=== PATIENT | female | born 1945 | race Caucasian/White ===

== ENCOUNTER 2017-07-22 23:22 | Emergency (ER) | payer OTHER ==
[2017-07-22 23:38] VITALS: BMI 23.3
[2017-07-22] MEDS ORDERED: NS 1000 ML 1,000 ML ONE (23:51)
[2017-07-22] MEDS ORDERED: NS 1000 ML 1,000 ML IV ONE (23:56)
[2017-07-22] MEDS ORDERED: TORADOL 30 MG VIAL IVP ONE (23:56)
[2017-07-23] MEDS ORDERED: TORADOL 30 MG VIAL ONE
--- NOTE | 2017-07-23 00:08 | DR.GENAD ---
HPI - PCP Primary Care Physician: placido - Complaint/Symptoms Chief Complaint Doctors Comments: Patient presents with complaint of vomiting and diarrhea this Pm. She admits to low grade fever. Denies myalgia. Chief Complaint:: flu symptoms - Source History Provided: Patient - Mode of Arrival Mode of Arrival: Ambulatory - Timing Onset of Chief Complaint: 07/21/17 PMH - PMH Past Medical History: No Past Surgical History: Yes Surgical History: Appendectomy, Hysterectomy - Family History History of Family Medical Conditions: Yes Family Medical History: Diabetes Mellitus, Cancer, Hypertension - Social History Does patient currently use any type of tobacco product: No Have you used tobacco products in the last 12 months: No Type of Tobacco Use: None Does any household member use tobacco: No Alcohol Use: None Do you use any recreational Drugs:: No Lives With: Family Lives Where: Home - infectious screening In the last 2 months have you had wt loss of >10#?: NO Have you had fever, night sweats or hemotysis?: No Have you traveled outside the country in the last 6 months?: No Isolation: Standard ROS - Review of Systems Constitutional: Weakness Eyes: No Symptoms Reported ENTM: No Symptoms Reported Respiratoy: No Symptoms Reported Cardiovascular: No Symptoms Reported Gastrointestinal/Abdominal: Diarrhea, Vomiting Genitourinary: No Symptoms Reported Neurological: No Symptoms Reported Musculoskeletal: No Symptoms Reported Integumentary: No Symptoms Reported Hematologic/Lymphatic: No Symptoms Reported Endocrine: No Symptoms Reported Psychiatric: No Symptoms Reported All Other Systems: Reviewed and Negative PE - Vital Signs Vitals: Temperature 99.5 F Pulse Rate 102 Respiratory Rate 18 Blood Pressure 113/42 O2 Sat by Pulse Oximetry 95 - General Limitations: No Limitations General Appearance: Alert, In No Apparent Distress - Head Head Exam: Normal Inspection, Atraumatic - Eyes Eye exam: Normal Appearance, PERRL, EOMI - ENT ENT Exam: Normal Exam, Mucous Membranes Dry External Ear Exam: Normal External Inspection TM/Canal Exam: Bilateral Normal Nose Exam: Normal Nose Exam Mouth Exam: Normal Inspection Throat Exam: Normal Inspection - Neck Neck Exam: Normal Inspection - Chest Chest Inspection: Normal Inspection - Respiratory Respiratory Exam: Normal Lung Sounds Bilat Respiratory Exam: Bilateral Clear to Auscultation - Cardiovascular Cardiovascular Exam: Regular Rate, Normal Rhythm - Abdominal Exam Abdominal Exam: Normal Inspection, Normal Bowel Sounds Abdominal Tenderness: negative: RUQ, RLQ, LUQ, LLQ, Epigastrium, Suprapubic, Diffuse, Mild, Moderate, Severe, Other - Extremities Extremities Exam: Normal Inspection, Full ROM - Back Back Exam: Normal Inspection, Full ROM - Neurologic Neurological Exam: Alert, Oriented X3, CN II-XII Intact - Psychiatric Psychiatric Exam: Normal Affect, Normal Mood - Skin Skin Exam: Warm, Dry, Intact, Other (cap refill prolonged) ROR - Labs Reviewed Laboratory Results Reviewed?: Yes (influenza A) Result Diagrams: 07/23/17 00:13 07/23/17 00:13 Laboratory: WBC 7.8 X10^3/uL (3.6-10.0) 07/23/17 00:13 RBC 4.42 X10^6/uL (3.5-5.4) 07/23/17 00:13 Hgb 14.7 g/dL (12.0-16.0) 07/23/17 00:13 Hct 41.2 % (36.0-47.0) 07/23/17 00:13 MCV 93.2 fL (80.0-100.0) 07/23/17 00:13 MCH 33.1 pg (27.0-34.0) 07/23/17 00:13 MCHC 35.5 g/dL (33.0-35.0) H 07/23/17 00:13 RDW 12.4 % (11.6-16.5) 07/23/17 00:13 Plt Count 216 X10^3/uL (150.0-450.0) 07/23/17 00:13 MPV 8.4 fL (7.4-11.0) 07/23/17 00:13 Neut % 82.1 % (42.0-75.0) H 07/23/17 00:13 Lymph % 5.7 % (21.0-51.0) L 07/23/17 00:13 [place] % 11.9 % (0.0-13.0) 07/23/17 00:13 Eos % 0.0 % (0.9-2.9) L 07/23/17 00:13 Baso % 0.3 % (0.2-1.0) 07/23/17 00:13 Neut # 6.4 x10^3/uL (2.2-4.8) H 07/23/17 00:13 Lymph # 0.4 X10^3/uL (1.3-2.9) L 07/23/17 00:13 [place] # 0.9 x10^3/uL (0.3-0.8) H 07/23/17 00:13 Eos # 0.0 x10^3/uL (0.0-0.2) 07/23/17 00:13 Baso # 0.0 X10^3/uL (0.0-0.1) 07/23/17 00:13 Absolute Nucleated RBC 0.1 /100WBC 07/23/17 00:13 Sodium 136 mmol/L (136-145) 07/23/17 00:13 Corrected Sodium 137 mmol/L (136-145) 07/23/17 00:13 Potassium 3.7 mmol/L (3.5-5.1) 07/23/17 00:13 Chloride 102 mmol/L (98-107) 07/23/17 00:13 Carbon Dioxide 27.1 mmol/L (21-32) 07/23/17 00:13 BUN 10 mg/dL (7-18) 07/23/17 00:13 Creatinine 1.02 mg/dL (0.55-1.02) 07/23/17 00:13 Est GFR (MDRD) Af Amer > 60 (>60) 07/23/17 00:13 Est GFR (MDRD) Non-Af 57 (>60) L 07/23/17 00:13 Glucose 159 mg/dL (65-99) H 07/23/17 00:13 Calcium 8.2 mg/dL (8.5-10.1) L 07/23/17 00:13 Corrected Calcium 8.9 mg/dL (8.5-10.1) 07/23/17 00:13 Total Bilirubin 0.50 mg/dL (0.2-1.0) 07/23/17 00:13 AST 22 Units/L (15-37) 07/23/17 00:13 ALT 22 Units/L (12-78) 07/23/17 00:13 Alkaline Phosphatase 93 Units/L (46-116) 07/23/17 00:13 Total Protein 7.1 g/dL (6.4-8.2) 07/23/17 00:13 Albumin 3.1 g/dL (3.4-5.0) L 07/23/17 00:13 Globulin 4.0 g/dL (2.5-4.5) 07/23/17 00:13 Albumin/Globulin Ratio 0.8 Ratio (1.1-2.1) L 07/23/17 00:13 Influenza Type A (PCR) Positive (NEGATIVE) A 07/23/17 00:05 Influenza Type B (PCR) Negative (NEGATIVE) 07/23/17 00:05 - XRAY XRAY Interpreted by: Radiologist (Chest: No acute cardiopulmonary disease) - Diagnosis Discharge Problem: Influenza A - Discharge Plan Condition: Stable - Follow ups/Referrals Follow ups/Referrals: Jacob Hernandez [Primary Care Provider] - 3 days - Instructions
[2017-07-23 00:27] LABS: BASOPHILS % (AUTO) 0.3 % (0.2-1.0); HEMATOCRIT 41.2 % (36.0-47.0); HEMOGLOBIN 14.7 g/dL (12.0-16.0); LYMPHOCYTES # (AUTO) 0.4 X10^3/uL (1.3-2.9); LYMPHOCYTES % (AUTO) 5.7 % (21.0-51.0); MEAN CORPUSCULAR HEMOGLOBIN 33.1 pg (27.0-34.0); MEAN CORPUSCULAR HGB CONC 35.5 g/dL (33.0-35.0); MEAN CORPUSCULAR VOLUME 93.2 fL (80.0-100.0); MEAN PLATELET VOLUME 8.4 fL (7.4-11.0); MONOCYTES # (AUTO) 0.9 x10^3/uL (0.3-0.8); MONOCYTES % (AUTO) 11.9 % (0.0-13.0); NEUTROPHILS # (AUTO) 6.4 x10^3/uL (2.2-4.8); NEUTROPHILS % (AUTO) 82.1 % (42.0-75.0); PLATELET COUNT 216 X10^3/uL (150.0-450.0); RED BLOOD COUNT 4.42 X10^6/uL (3.5-5.4); RED CELL DISTRIBUTION WIDTH 12.4 % (11.6-16.5); WHITE BLOOD COUNT 7.8 X10^3/uL (3.6-10.0)
[2017-07-23 00:36] LABS: ALANINE AMINOTRANSFERASE 22 Units/L (12-78); ALBUMIN 3.1 g/dL (3.4-5.0); ALKALINE PHOSPHATASE 93 Units/L (46-116); ASPARTATE AMINO TRANSFERASE 22 Units/L (15-37); BLOOD UREA NITROGEN 10 mg/dL (7-18); CALCIUM 8.2 mg/dL (8.5-10.1); CARBON DIOXIDE 27.1 mmol/L (21-32); CHLORIDE 102 mmol/L (98-107); COR CA(FOR HYPOALB) 8.9 mg/dL (8.5-10.1); COR NA(FOR HYPERGLY) 137 mmol/L (136-145); CREATININE 1.02 mg/dL (0.55-1.02); SODIUM 136 mmol/L (136-145); TOTAL PROTEIN 7.1 g/dL (6.4-8.2); eGFR BLACK RACES > 60 (>60); eGFR NON BLACK RACES 57 (>60)
--- NOTE | 2017-07-23 00:37 | RAD ---
AP Chest Indication: Fever Comparison: None available Findings: The trachea is midline. The cardiac silhouette is unremarkable. The lungs are clear without focal i nfiltrate or effusion. The bony thorax is unremarkable. IMPRESSION: 1. No acute cardiopulmonary abnormality. Reported By:
[2017-07-23 01:27] VITALS: BP 141/63
== END 2017-07-23 01:23 | disposition home or self-care (01) ==
LOC: ER 23:22
DX: J11.1 Influenza due to unidentified influenza virus with other respiratory manifestations (principal)
CPT/HCPCS: 36415; 71045; 80053; 85025; 87502; 96365; 96374; 99282; 99283; J1885